=== PATIENT | male | born 1970 | race Caucasian/White ===

== ENCOUNTER 2017-01-23 07:35 | Emergency (ER) | payer MEDICAID | END 2017-01-23 08:38 | disposition home or self-care (01) | LOC: D.ER 07:35 | DX: Z86.59 Personal history of other mental and behavioral disorders (principal); Z76.0 Encounter for issue of repeat prescription; F17.200 Nicotine dependence, unspecified, uncomplicated ==

== ENCOUNTER 2017-02-02 22:30 | Emergency (ER) | payer MEDICAID ==
[2017-02-03 00:17] LABS: APPEARANCE HAZY (CLEAR); COLOR DK YELLOW (YELLOW)
[2017-02-03 00:18] LABS: BILIRUBIN NEGATIVE (NEGATIVE); GLUCOSE NEGATIVE (NEGATIVE); KETONE MODERATE mg/dL (NEGATIVE); LEUKOCYTE ESTERASE TRACE (NEGATIVE); NITRITE NEGATIVE (NEGATIVE); PROTEIN TRACE mg/dL (NEGATIVE); UROBILINOGEN NORMAL (NORMAL)
[2017-02-03 00:23] LABS: BACTERIA MODERATE /hpf (NONE SEEN); EPITHELIAL CELLS OCC /hpf (0-5); MUCUS >1+ /lpf (NONE SEEN); RED CELLS - URINE OCC /hpf (0-5); WHITE CELLS - URINE 0-5 /hpf (0-5)
[2017-02-03 00:24] LABS: CALCIUM OXALATE CRYSTALS >50 /hpf (NONE SEEN); GRANULAR CAST OCC /lpf (NONE SEEN); HYALINE CAST 0-5 /lpf (NONE SEEN)
[2017-02-03 00:32] LABS: UDS - AMPHET NEGATIVE QUAL (NEGATIVE); UDS - BARB NEGATIVE QUAL (NEGATIVE); UDS - BENZO NEGATIVE QUAL (NEGATIVE); UDS - COCAINE NEGATIVE QUAL (NEGATIVE); UDS - METH NEGATIVE QUAL (NEGATIVE); UDS - OPIATE NEGATIVE QUAL (NEGATIVE); UDS - PCP NEGATIVE QUAL (NEGATIVE); UDS - THC NEGATIVE QUAL (NEGATIVE)
[2017-02-03 00:42] LABS: HEMOGLOBIN 12.2 g/dL (13.5-17.5); LYMPHOCYTES 22.3 % (15-50); MCH 29.5 pg (26.0-34.0); MCHC 33.9 g/dL (31.0-37.0); MCV 87.2 fL (80.0-100.0); MEAN PLATELET VOLUME 8.7 fL (7.4-10.4); NEUTROPHILS 70.3 % (40-80); PLATELET COUNT 216 10x3/uL (130-400); RBC 4.13 10x6/uL (4.20-6.10); RDW 13.3 % (11.5-14.5); WBC 9.3 10x3/uL (4.8-10.8)
[2017-02-03 00:49] LABS: CALC OSMOLALITY 279 mosm/kg (275-300); CALCIUM 8.7 mg/dL (8.5-10.1); CARBON DIOXIDE 27.5 mmol/L (21.0-32.0); CHLORIDE - SERUM 104 mmol/L (98-107); CREATININE - SERUM 0.9 mg/dL (0.6-1.3); GLUCOSE 133 mg/dL (74-106); SODIUM 140 mmol/L (136-145); UREA NITROGEN 10 mg/dL (7-18); eGFR NON AFRICAN AMERICAN > 90 mL/min (90-120)
== END 2017-02-03 04:28 | disposition left against medical advice (07) ==
LOC: D.ER 22:30
PROVIDERS: Family Medicine
DX: F23 Brief psychotic disorder (principal); F22 Delusional disorders

== ENCOUNTER 2019-01-09 20:29 | Emergency (ER) | payer MEDICAID ==
[~2019-01-09] VITALS: Ht 185.4 cm; Wt 95.5 kg
[2019-01-09 20:35] VITALS: Ht 185.4 cm; Wt 95.5 kg
[2019-01-09] MEDS ORDERED: SEROQUEL PO (20:44)
[2019-01-09] MEDS ORDERED: TRILEPTAL (20:44)
[2019-01-09] MEDS ORDERED: SEROQUEL (20:44)
[2019-01-09 21:08] LABS: APPEARANCE CLEAR (CLEAR); BILIRUBIN NEGATIVE (NEGATIVE); COLOR YELLOW (YELLOW); GLUCOSE 100 mg/dL (NEGATIVE); KETONE NEGATIVE (NEGATIVE); NITRITE NEGATIVE (NEGATIVE); PROTEIN TRACE mg/dL (NEGATIVE); UROBILINOGEN NORMAL (NORMAL)
[2019-01-09 21:24] LABS: UDS - AMPHET NEGATIVE QUAL (NEGATIVE); UDS - BARB NEGATIVE QUAL (NEGATIVE); UDS - BENZO NEGATIVE QUAL (NEGATIVE); UDS - COCAINE NEGATIVE QUAL (NEGATIVE); UDS - OPIATE NEGATIVE QUAL (NEGATIVE); UDS - PCP NEGATIVE QUAL (NEGATIVE); UDS - THC NEGATIVE QUAL (NEGATIVE)
[2019-01-09 21:35] LABS: HEMATOCRIT 38.9 % (42.0-54.0); HEMOGLOBIN 13.5 g/dL (13.5-17.5); MCH 29.2 pg (26.0-34.0); MCHC 34.7 g/dL (31.0-37.0); RBC 4.63 10x6/uL (4.20-6.10); WBC 7.6 10x3/uL (4.8-10.8)
[2019-01-09 21:55] LABS: PLATELET COUNT 271 10x3/uL (130-400)
[2019-01-09 22:02] LABS: ALBUMIN 4.5 g/dL (3.4-5.0); ALKALINE PHOSPHATASE 66 U/L (46-116); ALT (SGPT) 19 U/L (10-68); BILIRUBIN - TOTAL 0.45 mg/dL (0.2-1.3); CALC OSMOLALITY 282 mosm/kg (275-300); CALCIUM 9.6 mg/dL (8.5-10.1); CHLORIDE - SERUM 103 mmol/L (98-107); CREATININE - SERUM 0.9 mg/dL (0.6-1.3); GLUCOSE 122 mg/dL (74-106); POTASSIUM - SERUM 3.8 mmol/L (3.5-5.1); PROTEIN - SERUM 8.4 g/dL (6.4-8.2); SODIUM 142 mmol/L (136-145); UREA NITROGEN 11 mg/dL (7-18); eGFR NON AFRICAN AMERICAN > 90 mL/min (90-120)
[2019-01-09 22:27] LABS: LYMPHOCYTES 3 % (15-50); NEUTROPHILS 97 % (40-80); PLATELET ESTIMATE NORMAL
[2019-01-09] MEDS ORDERED: ALBUTEROL SULF8.5 GM (22:49)
[2019-01-09] MEDS ORDERED: DOXYCYCLINE HY100 M2 PO (22:49)
[2019-01-10 05:27] VITALS: BP 124/76
== END 2019-01-10 05:27 ==
LOC: D.ER 20:29
PROVIDERS: Family Medicine
DX: F23 Brief psychotic disorder (principal); F25.9 Schizoaffective disorder, unspecified